=== PATIENT | male | born 1995 | race Caucasian/White ===

== ENCOUNTER 2017-12-02 08:13 | Emergency (ER) | payer BC ==
[2017-12-02] MEDS ORDERED: diphenhydrAMINE 50 MG/ML VIAL ONE (09:28)
[2017-12-02] MEDS ORDERED: Acetaminophen 500 MG TAB ONE ×2 (09:28→09:34)
[2017-12-02] MEDS ORDERED: Metoclopramide HCl 10 MG/2 ML VIAL ONE (09:34)
[2017-12-02 10:28] LABS: #Eosinphils 0.1 thou/uL (0.0-0.7); #Lymphocytes 1.4 thou/uL (1.20-3.40); #Monocytes 0.5 thou/uL (0.11-0.59); #Neutrophils 8.3 thou/uL (1.40-6.50); %Basophils 0.4 % (0.0-1.0); %Eosinophils 0.7 % (0.0-10.0); %Lymphocytes 13.5 % (28.0-48.0); %Monocytes 5.2 % (0.0-4.0); %Neutrophils 80.1 % (31.0-61.0); Mean Corpuscular HGB CONC 35.2 g/dL (32.0-36.0); Mean Corpuscular Hemoglobin 33.8 pg (25.0-35.0); Mean Corpuscular Volume 96.2 fL (78.0-98.0); Mean Platelet Volume 7.5 fL (7.4-10.4); Platelet Count 203 thou/uL (130-400); RBC Distribution Width 11.6 % (11.5-14.5); Red Blood Cell (RBC) Count 5.04 mill/uL (4.00-5.20); White Blood Cell (WBC) Count 10.4 thou/uL (4.8-10.8)
[2017-12-02 10:47] LABS: ALT (SGPT) 20 U/L (8-55); AST (SGOT) 21 U/L (10-45); Albumin 4.8 g/dL (3.5-5.0); Alkaline Phosphatase 112 U/L (Less than 750); Anion Gap 15 mmol/L (10-20); BUN (Urea Nitrogen) 17 mg/dL (8.4-21.0); Bilirubin, Total 0.6 mg/dL (0.2-1.2); Calc. Creatinine Clearance 0 mL/min (70-130); Calcium 9.8 mg/dL (7.8-10.44); Carbon Dioxide 24 mmol/L (22-29); Chloride 103 mmol/L (98-107); Estimated GFR-MDRD Greater than 90; Globulin 2.9 g/dL (2.4-3.5); Glucose 91 mg/dL (70-105); Potassium 4.1 mmol/L (3.5-5.1); Protein, Total 7.7 g/dL (6.0-8.3); Sodium 138 mmol/L (136-145)
[2017-12-02 11:22] LABS: HIV (1/2) Antibody/Antigen Non-Reactive (NonReactive); HIV 1/2 INDEX 0.07 S/CO (<1.00)
[2017-12-02] MEDS ORDERED: Dexamethasone 10 MG/ML VIAL ONE (11:38)
--- NOTE | 2017-12-02 12:21 | CT ---
CT BRAIN WITH AND WITHOUT CONTRAST: Date: 12/02/17 HISTORY: 21-year-old male with headache. TECHNIQUE: Precontrast scan of brain IV injection iodinated contrast media: 100 mL [id number]. Postcontrast scan of brain FINDINGS: The ventricles are normal in size and configuration. There is no midline shift or any other mass eff ect. There is no evidence of acute intracranial hemorrhage, large cortical infarct, or extraaxial fl uid collection. The ayoub matter /white matter differentiation is maintained. There is no abnormal e nhancement or mass. The calvarium is intact. The tympanomastoid cavities, and the upper portions of the paranasal sinuses included in these images, are grossly clear. IMPRESSION: Normal. jaya [] POS: [facility]
[2017-12-02] MEDS ORDERED: ISOVUE-370 76%-LOCM 1 ML ONE (12:48)
== END 2017-12-02 12:08 | disposition home or self-care (01) ==
LOC: ERS 08:13
DX: R51 Headache (principal); F41.9 Anxiety disorder, unspecified
CPT/HCPCS: 36415; 70470; 80053; 85025; 86140; 87389; 96365; 96366; 96375; J1100; J1200; J2765

== ENCOUNTER 2017-12-03 12:10 | Emergency (ER) | payer BC ==
[2017-12-03] MEDS ORDERED: diphenhydrAMINE 50 MG/ML VIAL ONE (12:57)
[2017-12-03] MEDS ORDERED: Metoclopramide HCl 10 MG/2 ML VIAL ONE (12:57)
[2017-12-03] MEDS ORDERED: Ketorolac Tromethamine 30 MG/ML VIAL ONE (14:37)
== END 2017-12-03 14:46 | disposition home or self-care (01) ==
LOC: ERS 12:10
DX: R51 Headache (principal); F41.9 Anxiety disorder, unspecified
CPT/HCPCS: 96365; 96375; J1200; J1885; J2765

== ENCOUNTER 2018-02-11 08:37 | Outpatient (CLI) | payer BC ==
[2018-02-11] MEDS ORDERED: Iopamidol 370 76% 100 ML VIAL ONE (09:00)
--- NOTE | 2018-02-11 16:18 | CT ---
ABDOMEN CT WITH CONTRAST PELVIC CT WITH CONTRAST: Date: 02/11/18 HISTORY: Abdominal pain. COMPARISON: None. FINDINGS: ABDOMEN CT: Lung bases are clear. Heart size is within normal limits. No significant pericardial fluid. The desce nding thoracic aorta and abdominal aorta have normal caliber. No periaortic fat stranding. Symmetric attenuation of the psoas muscles. Intra and extrahepatic portal vein is patent. Liver, spleen, pancreas, and adrenal glands have appropriate enhancement. Decreased intra-abdominal fat limits evaluation for inflammatory change. No mesenteric mass, free air , or free fluid. There are a few scattered nonspecific mesenteric lymph nodes. There is a nonspecific enlarged mesenteric lymph node measuring 1.3 x 0.8 cm. No gastrohepatic, retrocrural, or periportal lymphadenopathy. Symmetric enhancement of the kidneys. Bilaterally, no obstructive uropathy. Gastric mucosa, duodenum, and multiple normal caliber small bowel loops are normal. Ileocecal junctio n is normal. Normal caliber appendix. Scattered fecal material in a nondistended, nondilated colon. O ccasional diverticulum. PELVIC CT: No pelvic mass, lymphadenopathy, or free air. There is free fluid in the pelvis with attenuation coef ficient of 6 Hounsfield units. No lytic or blastic lesions in the osseous structures. IMPRESSION: 1. Enlarged and nonenlarged mesenteric lymph nodes. Correlate for mesenteric lymphadenitis. 2. Free fluid in the pelvis, which is atypical for a male patient. Correlate clinically. 3. No evidence of obstructive uropathy. 4. Normal caliber appendix. POS: [facility]
--- NOTE | 2018-02-11 16:22 | CT ---
CT ANGIOGRAM OF CHEST: Date: 02/11/18 HISTORY: Shortness of breath. Generalized malaise x2 months. Patient is from [facility] and has been tested for all types of parasites. COMPARISON: None. TECHNIQUE: CT angiogram of the chest is performed in the axial plane. Three-dimensional reformatted images are s ubmitted for interpretation. FINDINGS: Trachea and central bronchi are patent. No masses or consolidation in the lung parenchyma. Focal thic kening of the left major fissure measuring 6.0 mm. Subpleural lymph node is favored. No pneumothorax or pleural effusion. No mediastinal mass, lymphadenopathy, or hematoma. Heart size is normal. No pericardial effusion. The descending thoracic aorta and upper abdominal aorta have a normal caliber. No periaortic fat strandi ng. Visualized alimentary canal and upper solid organs are unremarkable. Limited evaluation of the pulmonary arterial system due to the timing of bolus. There is no evidence of filling defect of the central pulmonary arteries. Evaluation of the lobar, segmental, and subsegme ntal arteries is limited due to technique. IMPRESSION: 1. Limited evaluation of the pulmonary arterial system due to timing of bolus. There is no evidence of an obvious central pulmonary artery embolism. 2. Normal caliber aorta. No aneurysm or dissection. 3. Focal thickening of the left major fissure, which may represent a small subpleural lymph node. 4. No evidence of significant lung consolidation. POS: [facility]
== END 2018-02-11 08:38 | disposition home or self-care (01) ==
LOC: SCSCT 08:37
DX: R06.02 Shortness of breath (principal); R07.9 Chest pain, unspecified; R10.9 Unspecified abdominal pain; J98.4 Other disorders of lung; R59.0 Localized enlarged lymph nodes
CPT/HCPCS: 71275; 74177

== ENCOUNTER 2018-06-06 08:42 | Outpatient (CLI) | payer BC ==
--- NOTE | 2018-06-06 12:01 | CT ---
CT CHEST WITH CONTRAST CT ABDOMEN WITH CONTRAST CT PELVIS WITH CONTRAST: HISTORY: Enlarged lymph nodes. R07.9 and R10.9. COMPARISON: CT abdomen and pelvis of 02/01/2018. FINDINGS: No suspicious pulmonary nodules. A 3 mm perifissural nodule along the left major fissure coronal lonnie ge 76 of series 602. No mediastinal adenopathy. The thyroid is unremarkable. No pericardial effusion. No axillary adenopathy. No internal mammary adenopathy. The liver and spleen are unremarkable. The gallbladder is unremarkable. The portal vein is patent. No pericholecystic fluid. Aortic contour is nonaneurysmal. There is small volume free fluid within the pelvis which is unchanged in volume from the comparison e xamination. This is simple free fluid. The appendix is visualized and is normal. The previously described lymph node measuring 1.3 x 0.8 cm is much smaller now measuring approximatel y 1 x 0.6 cm. No new enlarged lymph nodes. The skeleton is unremarkable. IMPRESSION: 1. Interval resolution of mesenteric lymph nodes suggesting resolved infection. 2. Unchanged small volume fluid in the pelvis. 3. Normal appendix. POS: [facility]
== END 2018-06-06 08:43 | disposition home or self-care (01) ==
LOC: SCSCT 08:42
PROVIDERS: ATTEND Specialist
DX: R07.9 Chest pain, unspecified (principal); R10.9 Unspecified abdominal pain
CPT/HCPCS: 71260; 74177